=== PATIENT | female | born 1990 | race Caucasian/White ===

== ENCOUNTER → 2016-11-10 | Outpatient (CLI) | payer BC ==
[2016-11-11 07:46] LABS: Mis test requested (Blood) Anti-Mullerian Hormn
== END | disposition home or self-care (01) ==
LOC: LABWHC1 15:29
PROVIDERS: ATTEND Obstetrics & Gynecology
DX: E28.8 Other ovarian dysfunction (principal)
CPT/HCPCS: 36415; 83520

== ENCOUNTER 2016-12-09 06:39 | Observation (INO) | payer BC ==
[2016-12-08 11:51] VITALS: BMI 27.4
[~2016-12-09 06:39] MED LIST: FAMOTIDINE 20 MG/2 ML VIAL IV PRN; LIDOCAINE 1% 20 ML VIAL (10MG/ML) FOR IV START INTRADERMA PRN; ONDANSETRON 4 MG/2 ML VIAL IVP PRN; ceFAZolin 2 GM in SODIUM CHLORIDE 0.9% 100 ML IVPB ONE
[2016-12-09] MEDS: LACTATED RINGERS 1,000 ML IV SCH ×2 (07:11→07:12)
[2016-12-09] MEDS ORDERED: LIDOCAINE 1% INJ 10MG/ML (20 ML MDV) ONE (07:58)
[2016-12-09] MEDS ORDERED: MEPERIDINE 50 MG/ML SYRINGE ONE (07:58)
[2016-12-09] MEDS ORDERED: ePHEDrine 50 MG/ML 1 ML AMP ONE (07:58)
[2016-12-09] MEDS ORDERED: MIDAZOLAM 2 MG/2 ML VIAL ONE (07:58)
[2016-12-09] MEDS ORDERED: PROPOFOL 10 MG/ML 20 ML VIAL IV ONE (07:58)
[2016-12-09] MEDS ORDERED: fentaNYL (PF) 50 MCG/ML 2 ML AMP ONE (07:58)
[2016-12-09] MEDS ORDERED: ceFAZolin 1,000 MG in SODIUM CHLORIDE 0.9% 1,000 ML IRRIGATION ONE (09:04)
[2016-12-09] MEDS ORDERED: LACTATED RINGERS 1,000 ML IV ONE (09:56)
--- NOTE | 2016-12-09 10:05 | XR ---
Limited right ankle HISTORY: Open reduction internal fixation 2 intraoperative C-arm images document the procedure
--- NOTE | 2016-12-09 10:06 | FL ---
Fluoroscopy HISTORY: Open reduction internal fixation, fracture 1 minute 41 seconds fluoroscopy time supplied to the referring clinician. 2 intraoperative C-arm rosalina ges document the procedure. See dictated report from orthopedic surgery.
[2016-12-09] MEDS ORDERED: HYDROmorphone 1 MG/ML 1 ML SYRINGE IVP PRN ×3 (10:29)
[2016-12-09] MEDS ORDERED: HYDROcodone/APAP 5-325MG 1 EACH TAB PO PRN ×2 (10:29)
[2016-12-09] MEDS ORDERED: SENNOSIDES-DOCUSATE SODIUM 1 EACH TAB PO PRN (10:29)
[2016-12-09] MEDS: MIDAZOLAM 2 MG/2 ML VIAL IV PRN ×2 (10:30→10:35)
[2016-12-09] MEDS: HYDROmorphone 1 MG/ML 1 ML SYRINGE IVP PRN ×4 (10:40→11:15)
--- NOTE | 2016-12-09 10:59 | P.OP ---
Date of Procedure: 12/09/16 Preoperative Diagnosis: 1. Closed right trimalleolar ankle fracture 2. History of smoking one half pack of cigarettes a day Postoperative Diagnosis: Same Procedure(s) Performed: 1. Open reduction and internal fixation of right trimalleolar ankle fracture ( open reduction and internal fixation of medial and lateral malleolus, nonoperative management of posterior malleolus fracture) 2. Manual application of joint stress applied by physician for joint radiography, right ankle Implants: Anesthesia: GETA Surgeon: Sawyer New [employer] Operator #1: Madison Chow Estimated Blood Loss (ml): 20 IV fluids (ml): 1,500 Pathology: none sent Condition: stable Disposition: PACU Indications for Procedure: The patient is a very pleasant 26-year-old female who sustained an injury to her right ankle when she fell off a deck over a week ago. She was initially seen in the emergency department at [facility] where x-rays showed a fracture dislocation of her right ankle. She underwent closed reduction and application of a splint in the emergency department. Follow-up was arranged in our office. She was sent for a computed tomography scan which showed a displaced trimalleolar ankle fracture. Her posterior malleolus fracture extended from the incisura to the medial malleolus. She had multiple fragments of her medial malleolus including a displaced anterior colliculus fragment and a vertical postero-medial fragment. My recommendation was to go forward with open reduction and internal fixation. We discussed the potential risks and complications of surgery including but not limited to risk of anesthesia, risk of superficial infection, risk of deep infection, risk of delayed wound healing , risk of wound necrosis, risk of intraoperative fracture, risk of postoperative fracture, risk of fracture nonunion, risk of fracture malunion, risk of damage to local sensory nerves resulting in temporary or permanent numbness, risk of chronic pain, risk of chronic swelling, risk of posterior medical arthritis, risk of postoperative displacement requiring more surgery, risk of generalized to satisfaction with surgery, risk of difficulty ambulating , and possibly loss of life or limb. The patient understands that she is at a slightly higher risk of having a complication due to her history of smoking. She provided her verbal and written consent to go forward with surgery. Operative Findings: Description of Procedure: The patient was identified in preoperative holding and the correct right leg was marked with my initials. All the patient and family questions were answered. She was then brought back to the operating room and transferred onto the operating room table. A general anesthetic and preoperative antibiotics were administered by anesthesia. A tourniquet was applied to the proximal aspect of the right thigh. Egg foam was placed under the left leg which was then secured to the table with tape. A bone foam bump was placed under her right buttock internally rotating the leg. A ramp was placed under the right leg elevating it. The right leg was then prepped and draped in the standard sterile fashion. Prior to starting surgery timeout was performed identifying the correct patient, operative extremity, and procedure. The leg was then elevated, exsanguinated with an Esmarch bandage and the tourniquet was inflated to 250 mmHg. Longitudinal incision was marked out over the lateral aspect of the distal fibula. Skin incision was made with a 15 blade scalpel and dissection was carried down carefully to the subcutaneous tissues with tenotomy scissors. The fascia overlying the proximal peroneal muscles was sharply incised and the periosteum was incised distally exposing the distal fibula. A long oblique fracture was identified. It was debrided of consolidating hematoma and early callus. There was a very small butterfly fragment postero-medially. Once the fracture sites were exposed and debrided a gentle longitudinal reduction was performed and the fracture was manipulated and then clamped with a point-to- point reduction clamp. There was an excellent cortical read both anteriorly and posteriorly. C-arm was brought in to assess the reduction. The fibula appeared to be out to length. A 2.4 mm lag screw was placed across the fracture. A 2.4 mm drill bit was used to create a gliding hole and the anterior cortex of the proximal fragment and a 1.8 mm drill bit was used to create a threaded hole in the posterior cortex of the distal fragment. A fully threaded 2.4 mm screw was applied generating excellent compression across the fracture site. The clamps were then removed and the reduction held. The small posterior medial fragment was too small for lag screw as well as left alone. I then placed a precontoured distal fibula plate along the lateral aspect of the distal fibula. A 3.5 mm nonlocking screw was placed just proximal to the most proximal extent of the fracture bringing the plate down to bone. I then proceeded to place four 3.5 mm screws distally in the plate. I then placed an additional two 3.5 mm locking screws proximal to the fracture. C-arm was brought in to verify reduction of the fracture and placement of the hardware. The fibula appeared to be out to length. Attention was then turned to the medial malleolus. A longitudinal incision centered over the medial talus was marked out with a skin marker. Skin incision was made a 15 blade scalpel and dissection was carried down carefully through subcutaneous tissue. The saphenous nerve and vein were identified and retracted anteriorly. The periosteum overlying the distal tibia was elevated. There was a displaced anterior colliculus fragment. There were several loose osteochondral fragments that were very small and were excised. In addition to the anterior colliculus fragment there was extension of the posterior malleolus fracture with a fracture line visible along the posterior medial border of the medial malleolus. I began by obtaining fixation in the anterior colliculus fragment. A 2.0 mm jewel bit was used to create a unicortical hole just proximal to the fracture line. A [id number] reduction clamp was used with 1 mariama in the previously drilled hole and the other mariama the tip of the medial malleolus. The fracture was then gently reduced. I verified that the anterior shoulder of the joint was reduced. C-arm was also brought in to verify reduction. I then proceeded to place a single 2.7 mm solid cortical screw measuring 55 mm across the anterior colliculus fragment. I was unable to place a second screw due to the size of the fragment. I then dissected posteriorly along the medial malleolus to the groove of the posterior tibial tendon. The posterior tibial tendon sheath was not violated. I was able to visualize the vertical fracture fragment. I then contoured a 2.4 mm malleable plate over the posterior medial tibia. Two 2.4 mm screws were placed proximally to the fracture and a third 2.4 screw was placed in the most distal hole of the plate. On clinical inspection the medial malleolus fracture appeared to be reduced and nicely compressed with the hardware. C-arm fluoroscopy was then brought in. AP, mortise, and lateral x-rays all showed reduction of the ankle fracture with no widening of the medial clear space, no widening of the incisor and the fibula appeared to be out to length. On the lateral view there was minimal displacement of the posterior malleolus fragment, the talus was centered under the tibial plafond and there was no evidence of posterior subluxation. A manual external rotation stress test was then performed. With the C-arm under live I externally rotated the leg and there was no widening of the medial clear space or incisor a. I interpreted this as a stable syndesmosis not requiring fixation. Both wounds were then copiously irrigated with sterile saline. The fascia and periosteum was closed with a running 0 Vicryl stitch over the lateral malleolus. The deep subcutaneous tissue was reapproximated using 2-0 Vicryl interrupted stitches. The skin was closed with 3-0 nylon horizontal mattress stitches. The fascia over the medial malleolus was likewise closed with a running 0 Vicryl stitch. The deep subcu was reapproximated using 2-0 Vicryl interrupted stitches. The skin was closed with 3-0 nylon horizontal mattress stitches. I verified that all instrument, sponge, and sharp counts were correct. The leg was then cleansed and Brown quarter stretchy Steri-Strips were placed between the stitches. The patient then had a sterile dressing consisting of Betadine soaked Adaptic, 4 x 4, ABDs, and web rolls applied. The drapes were taken down and a well-padded bulky Raza type splint was placed. She was awoken from her anesthetic, transferred to the [facility] and brought to PACU having to the procedure well. Madison Chow PA-C was required is a skilled activities assistant for patient positioning, surgical exposure, fracture reduction, placement of hardware, closure of surgical wounds, and application of splint. Plan: The patient will be given a nerve block in PACU by anesthesia. I discussed both admission overnight for pain control versus discharge home. If the patient is admitted she will receive 2 doses of postoperative antibiotics and Lovenox for DVT prophylaxis. She is to be strictly nonweightbearing on her operative leg. She'll need follow-up in the office in 2 weeks.
[2016-12-09] MEDS ORDERED: ROPIVACAINE 5 MG/ML 30 ML VIAL MISCELLANE ONE ×2 (11:00)
[2016-12-09] MEDS: LORazepam 2 MG/ML SYRINGE IV ONE ×2 (11:05→11:10)
[2016-12-09] MEDS ORDERED: hydrALAZINE HCL 20 MG/ML 1 ML VIAL IVP ONE (12:09)
[2016-12-09] MEDS ORDERED: fentaNYL (PF) 50 MCG/ML 2 ML AMP IV ONE (12:44)
[2016-12-09] MEDS ORDERED: NALOXONE 0.4 MG/ML 1 ML VIAL IV PRN (13:09)
[2016-12-09] MEDS ORDERED: oxyCODONE-APAP 5-325MG 1 EACH TAB PO PRN ×2 (14:04→14:05)
[2016-12-09] MEDS: HYDROmorphone PCA 5 MG/25 ML SYRINGE IV PRN ×2 (14:25→19:56)
[2016-12-09] MEDS ORDERED: DIAZEPAM 2 MG TAB PO SCH (16:00)
[2016-12-09] MEDS ORDERED: KETOROLAC 30 MG/ML 1 ML VIAL IVP PRN (16:35)
[2016-12-09] MEDS: ceFAZolin 2 GM in SODIUM CHLORIDE 0.9% 100 ML IVPB SCH ×2 (17:17→23:08)
[2016-12-09] MEDS: DIAZEPAM 2 MG TAB PO PRN (23:08)
[2016-12-09] MEDS: SODIUM CHLORIDE 0.9% 1,000 ML IV SCH (23:09)
[2016-12-09] MEDS: ONDANSETRON 4 MG/2 ML VIAL IVP PRN (23:21)
[2016-12-10] MEDS: ONDANSETRON 4 MG/2 ML VIAL IVP PRN (03:43)
[2016-12-10] MEDS: HYDROmorphone PCA 5 MG/25 ML SYRINGE IV PRN (04:12)
[2016-12-10] MEDS: SODIUM CHLORIDE 0.9% 1,000 ML IV SCH (04:12)
[2016-12-10] MEDS: LACTATED RINGERS 1,000 ML IV SCH (05:14)
[2016-12-10] MEDS: DIAZEPAM 2 MG TAB PO PRN (06:27)
[2016-12-10 08:16] VITALS: BP 123/64; PULSE 55; RESP 16; TEMP 97.7
[2016-12-10] MEDS ORDERED: ENOXAPARIN 40 MG/0.4 ML SYRINGE SQ SCH (09:00)
--- NOTE | 2016-12-10 09:17 | P.DS ---
Providers Date of admission: 12/09/16 15:06 Expected date of discharge: 12/10/16 Attending physician: Sawyer New Primary care physician: Epi Lewis [facility] Hospital Course: Patient was admitted to the OR on 12/09/2016 to undergo right trimal ankle fracture. She desired to proceed with the surgery after giving informed consent of possible risks, complications and benefits. She underwent the above procedure which she tolerated well without complication. Postoperative hospital course has remained without complication. On day of discharge she is afebrile, vital signs stable, labs within acceptable ranges, tolerating by mouth meds and diet, pain controlled, denies new complaints, splint and bandage intact with no active evidence of active bleeding or drainage, neurovascular status intact both proximal and distal to the splint, abdomen soft nontender. Review of systems is negative for fever, chills, chest pain, shortness breath, nausea, vomiting, numbness, tingling, dizziness, slurred speech, abdominal pain , calf pain or other. Procedures: ORIF right trimalleolar ankle fracture Patient Condition at Discharge: Good Plan - Discharge Summary New Discharge Prescriptions: New Aspirin 325 mg PO BID #28 tab Docusate [Colace] 100 mg PO DAILY #14 capsule Hydrocodone/Acetaminophen [[place] 10-325 Tablet] 1 - 2 each PO Q4HR PRN #70 tablet PRN Reason: Pain Cyclobenzaprine [Flexeril] 10 mg PO TID PRN #30 tab PRN Reason: Spasms No Action Ibuprofen [Motrin] 600 mg PO Q8HR PRN PRN Reason: Pain Discharge Medication List Ibuprofen [Motrin] 600 mg PO Q8HR PRN 12/08/16 [History] Aspirin 325 mg PO BID #28 tab 12/09/16 [Rx] Docusate [Colace] 100 mg PO DAILY #14 capsule 12/09/16 [Rx] Cyclobenzaprine [Flexeril] 10 mg PO TID PRN #30 tab 12/10/16 [Rx] Hydrocodone/Acetaminophen [[place] 10-325 Tablet] 1 - 2 each PO Q4HR PRN #70 tablet 12/10/16 [Rx] Follow up Appointment(s)/Referral(s): Sawyer New MD [Medical Doctor] - 2 Weeks Activity/Diet/Wound Care/Special Instructions: Please stay non-weightbearing to the right lower extremity, use crutches for ambulation. Please rest, ice, and elevate the right lower extremity Take meds as directed Discharge Disposition: HOME SELF-CARE
--- NOTE | 2016-12-10 09:47 | P.ONQ ---
Anesthesiology Proc Note - PNB - Peripheral Nerve Block Performed Right Popliteal Single Time Out Performed: Yes Procedure Start Time: 10:55 Procedure Stop Time: :59 Indication: Acute Post-Operative Pain, Requested by physician Sedation Type: Sedate with meaningful contact maintained Preparation: Sterile Prep Needle Size: 50mm (2") Needle Gauge: 21 Technique: Ultrasound Injectate: 0.5% Ropivacaine (see comment for volume) (ropi .5% 20cc given) Blood Aspirated: No Pain Paresthesia on Injection Noted: No Resistance on Injection: Normal Events: Uneventful and Well Tolerated
== END 2016-12-10 09:53 | disposition home or self-care (01) ==
LOC: OR 06:39 → 3OBS 10:48 → OR 15:05 → 3OBS 15:06
PROVIDERS: ADMIT Orthopaedic Surgery; ATTEND Orthopaedic Surgery
DX: S82.851A Displaced trimalleolar fracture of right lower leg, initial encounter for closed fracture (principal); F17.210 Nicotine dependence, cigarettes, uncomplicated; W17.89XA Other fall from one level to another, initial encounter
CPT/HCPCS: 27822; 96365; 96366; 96375 ×2; 96376 ×2; 81025; 73600; G0378 ×2; C1713; J2250; J2060; J0360; J2175; J0690 ×2; J2405 ×2; J2001; J3010; J1885; J1170 ×4; J2795; J2704

== ENCOUNTER → 2017-08-05 | Outpatient (CLI) | payer OTHER ==
[2017-08-05 12:06] VITALS: BP 119/77; PULSE 56; RESP 16
--- NOTE | 2017-08-05 12:59 | P.CONS ---
History of Present Illness - Reason for Consult Consult date: 08/05/17 - Chief Complaint Right ankle pain - History of Present Illness This is a 26-year-old female with history of right ankle fracture and surgical repair ORIF in January 2017.. Since then the patient has been having constant pain in her right ankle mostly on the medial aspect of the ankle and she describes this pain as sharp and achy. This pain used to wake her up at night but not frequently as it used to be. This pain gets worse by any weightbearing activities and improves by sitting down. The patient also feels numbness on the dorsal aspect of her right foot that involves the first toe. However it seems that there is no allodynia to touch. The patient's pain has been responding well to 1 pill a day of [place] 5 mg that she takes in the morning before she goes to her work. 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 She denies any bowel or bladder dysfunction or any other health issues. Past Medical History Past Medical History: Asthma, Musculoskeletal Disorder Additional Past Medical History / Comment(s): bronchitis in 2016, fell & fx. right ankle 11-27-16, currently in half cast, has premature ovarian failure- irreg. periods History of Any Multi-Drug Resistant Organisms: None Reported Past Surgical History: Orthopedic Surgery Additional Past Surgical History / Comment(s): wisdom teeth removed,EGD. December 2016 - surgery to right ankle (plates and screws) Past Anesthesia/Blood Transfusion Reactions: No Reported Reaction Past Psychological History: Anxiety Smoking Status: Current every day smoker Past Alcohol Use History: Occasional Additional Past Alcohol Use History / Comment(s): 6 cigs/day, has smoked 14 yrs. Past Drug Use History: None Reported - Past Family History Mother Family Medical History: No Reported History Medications and Allergies Home Medications Medication Instructions Recorded Confirmed Type HYDROcodone/APAP 5-325MG [[place] 1 tab PO DAILY PRN 08/05/17 08/05/17 History 5-325] Pregabalin [Lyrica] 50 mg PO DIRECTED 08/05/17 08/05/17 History Allergies Allergy/AdvReac Type Severity Reaction Status Date / Time No Known Allergies Allergy Verified 08/05/17 11:52 Physical Exam Vitals: Vital Signs Pulse Resp BP 08/05/17 11:59 56 L 16 119/77 Intake and Output 01/08/05/17 08/05/17 22:59 06:59 14:59 Other: Weight 65.771 kg Patient Weight 08/06/17 06:59 Weight 65.771 kg The patient is alert oriented 3 in no apparent distress She has well-healed incisions on the medial and lateral aspect of her right ankle with very mild swelling on the medial malleoli. There is numbness on the dorsal aspect of the right big toe. There is no allodynia to touch in the painful area which is mostly on the medial malleolus. There is mild tenderness around the medial malleolus. She has normal muscle strength for right foot dorsiflexion ,plantarflexion, inversion and Extroversion. Assessment and Plan Plan: This is a 26-year-old female with more than 6 months history of right ankle pain status post ORIF on an ankle fracture. The patient has slight swelling around the medial malleolus however she does not have any allodynia to touch and there are no skin or nail changes. Differential diagnoses includes; right saphenous nerve neuralgia Complex regional pain syndrome Somatic pain The plan will be to start her on Lyrica on an escalating dosage and to wean her off [place] gradually. I will give her prescription for Lyrica 50 mg to be increased to 3 times a day over a few days I'll give her also prescription for 1 pill a day of [place], total of 30 pills for the month and we'll see her 4 weeks from now.
== END | disposition home or self-care (01) ==
LOC: PNWHC3 11:45
PROVIDERS: ATTEND Anesthesiology
DX: M25.571 Pain in right ankle and joints of right foot (principal); F41.9 Anxiety disorder, unspecified; F17.200 Nicotine dependence, unspecified, uncomplicated; F10.20 Alcohol dependence, uncomplicated; J45.909 Unspecified asthma, uncomplicated; E28.39 Other primary ovarian failure; Z87.828 Personal history of other (healed) physical injury and trauma; Z79.891 Long term (current) use of opiate analgesic; Z98.890 Other specified postprocedural states; Z79.899 Other long term (current) drug therapy
CPT/HCPCS: 99211